=== PATIENT | male | born 1955 | race Hispanic/Latino ===

== ENCOUNTER → 2024-04-03 | Outpatient (CLI) | payer OTHER | END | disposition home or self-care (01) | LOC: RAH 09:21 | PROVIDERS: ATTEND Internal Medicine | DX: N28.1 Cyst of kidney, acquired (principal); K76.0 Fatty (change of) liver, not elsewhere classified; K80.20 Calculus of gallbladder without cholecystitis without obstruction; R16.0 Hepatomegaly, not elsewhere classified; N32.89 Other specified disorders of bladder | CPT/HCPCS: 76700 ==

== ENCOUNTER → 2025-05-11 | Outpatient (CLI) | payer OTHER ==
[2025-05-11 22:26] VITALS: PULSE 69; RESP 12
[2025-05-11 23:01] VITALS: PULSE 59; RESP 12
[2025-05-11 23:37] VITALS: PULSE 65; RESP 10
[2025-05-12] VITALS (11 sets, daily range): PULSE 56–82; RESP 10–14
== END | disposition home or self-care (01) ==
LOC: SLP 19:55
PROVIDERS: ATTEND Internal Medicine
DX: R40.0 Somnolence (principal); R06.83 Snoring; G47.33 Obstructive sleep apnea (adult) (pediatric); I10 Essential (primary) hypertension; R45.1 Restlessness and agitation
CPT/HCPCS: 95810

== ENCOUNTER → 2025-05-21 | Outpatient (CLI) | payer OTHER ==
[2025-05-21 21:55] VITALS: PULSE 70; RESP 12
[2025-05-21 22:30] VITALS: PULSE 70; RESP 16
[2025-05-21 23:00] VITALS: PULSE 64; RESP 12
[2025-05-21 23:30] VITALS: PULSE 64; RESP 14
[2025-05-22] VITALS (10 sets, daily range): PULSE 52–70; RESP 12–22
== END | disposition home or self-care (01) ==
LOC: SLP 19:33
PROVIDERS: ATTEND Internal Medicine
DX: G47.33 Obstructive sleep apnea (adult) (pediatric) (principal); R06.83 Snoring; R40.0 Somnolence
CPT/HCPCS: 95811